=== PATIENT | male | born 1945 | race Caucasian/White ===

== ENCOUNTER 2021-02-21 06:16 | Day surgery (SDC) | payer MEDICARE, OTHER ==
[~2021-02-21] VITALS: Ht 162.6 cm; Wt 123.8 kg
[2021-02-21 06:42] VITALS: BP 133/76; PULSE 73; TEMP 97.4
[2021-02-21] MEDS ORDERED: ASPIRIN 81M81 MG/TA2 PO (07:33)
[2021-02-21] MEDS ORDERED: PROFERRIN ES12 MG PO (07:34)
[2021-02-21] MEDS ORDERED: COZAAR 25MG25 MG/TAB PO (07:34)
[2021-02-21] MEDS ORDERED: PROAIR HFA0.09 MG/AC IH (07:35)
[2021-02-21] MEDS ORDERED: SORBITOL 70% (07:36)
[2021-02-21] MEDS ORDERED: SORBITOL PO (07:36)
[2021-02-21] MEDS ORDERED: HCTZ12.5TAB PO (07:37)
[2021-02-21] MEDS ORDERED: NORVASC 5MG5 MG/TAB PO (07:37)
[2021-02-21] MEDS ORDERED: MORPHINE 1515 MG/TAB PO (07:38)
[2021-02-21] MEDS ORDERED: LIPITOR 40MG TA40 MG PO (07:38)
[2021-02-21] MEDS ORDERED: MAG-OX 400400 MG/TAB PO (07:39)
[2021-02-21] MEDS ORDERED: BACTROBAN22 TOP (07:40)
[2021-02-21] MEDS ORDERED: ZYRTEC10MGSGL PO (07:40)
[2021-02-21] MEDS ORDERED: EPA FISH OIL1 SGL PO (07:41)
[2021-02-21] MEDS ORDERED: B-121000 MCG PO (07:41)
[2021-02-21] MEDS ORDERED: OSCAL 500 TAB500 MG PO (07:42)
[2021-02-21] MEDS ORDERED: VITAMIN C500 MG PO (07:42)
[2021-02-21 08:28] VITALS: BP 135/78; PULSE 71; TEMP 97.8
[2021-02-21 08:43] VITALS: BP 128/66; PULSE 69
--- NOTE | 2021-02-21 08:57 | NUR ---
PT RETURNED FROM ENDO UNIT PER CART. PT ALERT AND SLEEPY. PT DENIES PAIN, NAUSEA OR VOMITING. IVF PATENT AND FLUIDS INFUSING WITHOUT DIFFICULTY. LUNGS CLEAR, HRR, BOWEL SOUNDS PRESENT. IS PRESENT IN ROOM. BLUEBERRY MUFFIN AND APPLE JUICE REQUESTED. WILL MONITOR.
[2021-02-21 09:00] VITALS: BP 138/73; PULSE 73
[2021-02-21 09:01] VITALS: BP 135/78; PULSE 78
--- NOTE | 2021-02-21 09:02 | NUR ---
PT IS TOLERATING FOOD AND FLUIDS. DENIES NAUSEA OR VIMITING.
--- NOTE | 2021-02-21 09:05 | NUR ---
PT TOLERATING FOOD AND FLUIDS. IV DC'D AND TOLERATED WELL. DISMISSAL PROVIDED, PT VOICED UNDERSTANDING. PT WAS TAKEN TO PATIENT ENTRANCE. PT WAS DIMISSED TO FAMILY VEHICLE. DRIVING.
== END 2021-02-21 09:09 | disposition home or self-care (01) ==
LOC: SDCO 06:16
DX: Z12.11 Encounter for screening for malignant neoplasm of colon (principal); K29.80 Duodenitis without bleeding; D12.2 Benign neoplasm of ascending colon; K21.9 Gastro-esophageal reflux disease without esophagitis; K44.9 Diaphragmatic hernia without obstruction or gangrene; K29.30 Chronic superficial gastritis without bleeding; Z86.73 Personal history of transient ischemic attack (TIA), and cerebral infarction without residual deficits; I10 Essential (primary) hypertension; Z86.14 Personal history of Methicillin resistant Staphylococcus aureus infection; G47.33 Obstructive sleep apnea (adult) (pediatric); M19.90 Unspecified osteoarthritis, unspecified site; E66.01 Morbid (severe) obesity due to excess calories; Z68.43 Body mass index [BMI] 50.0-59.9, adult; F32.9 Major depressive disorder, single episode, unspecified; J45.909 Unspecified asthma, uncomplicated; E78.5 Hyperlipidemia, unspecified; Z20.822 Contact with and (suspected) exposure to COVID-19
CPT/HCPCS: J2704; J7030